=== PATIENT | male | born 1930 | race Caucasian/White ===

== ENCOUNTER 2017-01-31 18:48 | Emergency (ER) | payer MEDICARE, OTHER ==
[2017-01-31] MEDS ORDERED: ONDANSETRON HCL/PF 2 MG/ML VIAL IV ONE (19:18)
--- NOTE | 2017-01-31 19:22 | ERNOTE ---
<Gracia Sousa - Last Filed: 01/31/17 20:09> Abdominal HPI - Narrative Date of Service: 01/31/17 - unable to see patient, signed over to DR Chau - General Chief Complaint: Abdominal Pain Time Seen by Provider: 01/31/17 19:15 Source: patient - Immun/Allergies/Home Medications Immunizatons: IMMUNIZATION HX Immunizations Up to Date Yes History of Influenza Vaccine Yes Hx Pneumococcal Vaccination Yes Allergies/Adverse Reactions: Allergies No Known Drug Allergies Allergy (Verified 01/31/17 19:10) Home Medications: HOME MEDICATIONS Aspirin [Aspirin Enteric Coated] 81 mg PO DAILY 05/16/13 [Last Taken 10/13/13] Nitroglycerin [Nitrostat] 0.4 mg SL Q5MIN PRN 05/16/13 [Last Taken 10/13/13] Simvastatin [Zocor] 5 mg PO DAILY 11/04/14 [Last Taken Unknown] Ergocalciferol [Calciferol] 50,000 units PO Q30D tablet 11/06/14 [Last Taken ] Cranberry Fruit Concentrate [Cranberry] 2 tab PO Q3D 11/08/15 [Last Taken Unknown] Isosorbide Mononitrate [Imdur] 60 mg PO DAILY 11/08/15 [Last Taken Unknown] Losartan Potassium [Cozaar] 100 mg PO HS 11/08/15 [Last Taken Unknown] Mirtazapine [Remeron] 7.5 mg PO HS 11/08/15 [Last Taken Unknown] amLODIPine BESYLATE [Norvasc] 10 mg PO DAILY 11/08/15 [Last Taken Unknown] Calcium Carbonate [Calcium] 500 mg PO TID #90 tab.chew 12/25/15 [Last Taken Unknown] Atenolol [Tenormin] 25 mg PO DAILY 01/31/17 [Last Taken Unknown] Iron 65 mg PO DAILY 01/31/17 [Last Taken Unknown] Torsemide 5 mg PO BID 01/31/17 [Last Taken Unknown] Review of Systems - Narrative Narrative: Pt presents with c/o abdominal pain x4-5 days. Pt states that he has pain in the center of his abdomen that rates 5/10. Pt verbalized that he also has a headache 4-5/10. states at home he has had chills. Denies any vomiting or diarrhea. States that his bowels are loose but not diarrhea. Per nursing triage assessment - Patient's Past Medical History Patient History - Medical: Renal Disease, Renal Failure Patient History - Cardiac/Respiratory: CHF, Hypertension Patient History - Cancer: No Hx of Cancer Patient History - Surgical Procedures: Cataracts, Colonoscopy, Cardiac stent, Other, Hernia Repair Patient History - Other: None - Family History Mother Family History - Medical: Family History - Cardiac/Respiratory: CVA/Stroke, Hypertension Father Family History - Medical: Family History - Cardiac/Respiratory: CVA/Stroke - Social History Living Situations: home Abuse History: No History of abuse Psych History: No pertinent hx Smoking Status: Never smoker Alcohol Use: none Drug Use: none - Immunizations Immunizations Up to Date: Yes Hx Pneumococcal Vaccination: Yes History of Influenza Vaccine: Yes ED Progress - Vital Signs Patient's Vital Signs:: I have reviewed the patient's vital signs. Vital Signs: Vital Signs 01/31/17 19:04 Temperature 37.5 C Pulse Rate 76 Respiratory 18 Rate Blood Pressure 150/88 O2 Sat by Pulse 95 Oximetry - EKG EKG read: Interp. by dc - Progress/Reassessment Chief Complaint: Abdominal Pain - Transfer of Care Physician Sign Out: Gracia Sousa - 20:12 Brief History: Patient here with abd pain x several days, labs and xrays, ekg ordered, IV zofran for nausea. Receiving Physician: Clint Chau Pending Results: Labs, X-ray results - examination and history Plan - Plan Plan: signed over to Dr. Chau EKG witn no acute stemi noted nsr rate 63 Departure - Departure Clinical Impression: Abdominal pain Qualifiers: Abdominal location: upper abdomen, unspecified Qualified Code(s): R10.10 - Upper abdominal pain, unspecified Constipation Qualifiers: Constipation type: slow transit constipation Qualified Code(s): K59.01 - Slow transit constipation Disposition: Home self-care Condition: Fair Instructions: Constipation, Adult, [id number] Referrals: Srini Roy MD [Primary Care Provider] - <Clint Chau - Last Filed: 02/01/17 20:21> Abdominal HPI - General Source: patient, family Exam Limitations: no limitations - Immun/Allergies/Home Medications Immunizatons: IMMUNIZATION HX Immunizations Up to Date Yes History of Influenza Vaccine Yes Hx Pneumococcal Vaccination Yes - History of Present Illness Narrative: Pt states he began to have diffuse abdominal pain 4-5 days ago. It has continued and gotten somewhat worse. Having a BM helps a little Timing: constant, getting worse Quality: moderate Activities at Onset: none Modifying Factors - (Improves): Present: defecating Modifying Factors - (Worsens): Present: coughing, movement, other - belching Associated Symptoms: Present: fever/chills, other - loose, dark stools Review of Systems - Review of Systems Constitutional: Present: chills EYE: Present: no symptoms reported ENT: Present: no symptoms reported Respiratory: Absent: shortness of breath, cough Cardiology: Absent: chest pain, palpitations Gastrointestinal/Abdominal: Present: See HPI Genitourinary: Absent: frequency, dysuria Musculoskeletal: Present: no symptoms reported Skin: Present: no symptoms reported Neurological: Present: headache - mild Endocrine: Present: intolerance to cold Hematologic/Lymphatic: Present: no symptoms reported Psych: Present: no symptoms reported Physical Exam - Physical Exam General Appearance: Present: wd/wn, alert, no apparent distress Ears, Nose, Throat: Present: normal ENT inspection Neck: Present: normal inspection, nontender Respiratory: Present: no respiratory distress, normal breath sounds, lungs clear Cardiovascular/Chest: Present: regular rate, rhythm, no murmur Gastrointestinal/Abdominal: Present: normal bowel sounds, tenderness - periumbilical Back Exam: Present: no CVA tenderness, no vertebral tenderness Extremity Exam: Present: normal inspection, non-tender, no edema Neurological Exam: Present: alert, oriented, normal mood/affect, no motor/ sensory deficits Skin Exam: Present: normal color, warm/dry Lymphatic Exam: Present: no adenopathy ED Progress - Results and Orders Patient's Lab Results:: I have reviewed the patient's lab results. Results and Orders: Laboratory Tests 01/31/17 01/31/17 01/31/17 19:24 19:28 19:28 WBC 9.3 Hgb 13.0 L Hct 37.3 L Plt Count 148 L Sodium 134 Potassium 4.9 H Chloride 98 Carbon Dioxide 27.1 Anion Gap 13.8 BUN 76 H D Creatinine 3.63 H D Est GFR (Non-Af Amer) 17 L D BUN/Creatinine Ratio 20.9 Random Glucose 139 H Calcium 9.1 Total Bilirubin 0.8 AST 15 ALT 16 L Alkaline Phosphatase 77 Total Protein 7.7 Albumin 3.5 Amylase 78 Lipase 354 Urine Color Yellow Urine Appearance Clear Urine pH 5.5 Ur Specific Mcdonald 1.010 Urine Protein 30 H Urine Glucose (UA) Negative Urine Ketones Negative Urine Blood 5 H Urine Nitrate Negative Urine Bilirubin Negative Prot Sulfosalicylic Acd 1+ Urine Urobilinogen Normal Ur Leukocyte Esterase Negative Urine RBC Trace Urine WBC None seen Ur Epithelial Cells 0-5 Urine Bacteria None seen Urine Culture Comments No culture indicated - Vital Signs Patient's Vital Signs:: I have reviewed the patient's vital signs. 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 EKG read: Interp. 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 small non-obstructive calculi in the left kidney diverticulosis without diverticulitis Normal appendix NO evidence of bowel obstruction, inflammation or perforation
--- OUTSIDE RECORDS SUMMARY | 2017-01-31 19:27 | XMS REPORT | Continuity of Care Document ---
:1930 Author Organization [employer] [place] [address] Care Team Providers Name Role Phone Provider, None Per Patient Primary Care Provider Unavailable Source Comments This disclosure is being made pursuant to the [employer]ust have it! program and maynot contain all information available regarding this patient.[employer] Active Allergies and Adverse Reactions No Known Allergies Current Medications Be aware that medications may not be up to date as of this document. Alwaysverify current medications with the patient. Prescription Sig. Disp. Refills Start Date End Date Status aspirin low dose 81 MG Chew 81 mg by Active CHEW mouth daily. clopidogrel (PLAVIX) 75 MG Take 75 mg by Active tablet mouth daily. atenolol (TENORMIN) 25 MG Take 25 mg by Active tablet mouth daily. terazosin (HYTRIN) 5 MG Take 5 mg by mouth Active capsule nightly. Active Problems Not on file Social History Tobacco Use Types Packs/Day Years Used Date Never Assessed Last Filed Vital Signs Vital Sign Reading Time Taken Blood Pressure 136/62 02/17/2012 10:31 AM CDT Pulse 54 02/17/2012 10:31 AM CDT Temperature - - Respiratory Rate 14 02/17/2012 10:31 AM CDT Height - - Weight - - Body Mass Index - - Oxygen Saturation 98% 02/17/2012 10:31 AM CDT Plan of Care Health Maintenance Due Date Last Done Comments Tetanus/Pertussis (1 - Tdap) 1949 Well Adult Visit 1978 Zoster Vaccine 60+ 1988 Pneumococcal Low/Medium Risk 65+ (1 of 2 - PCV13) 1993 Retired-INFLUENZA VACCINE 03/30/2016 Results from Last 3 Months Not on file Insurance Payer Benefit Plan / Group Subscriber ID Type Phone Address [employer] [id number] MEDICARE MEDICARE A AND B [id number] [id number] [address] [place] [address] 2 [id number] [place] [address]
[2017-01-31 19:30] LABS: Hematocrit 37.3 % (42.0-52.0); Mean Cell Volume 92.1 fl (78-100); Mean Corpuscular Hemoglobin 32.1 pg (27-31); Mean Corpuscular Hgb Conc 34.9 g/dl (32-36); Mean Platelet Volume 10.8 fl (6.0-9.5); Neutrophil # 6.8 K/mm3 (1.3-6.0); Neutrophil % 72.8 % (42-75.0); Platelet Count 148 K/mm3 (150-450); Red Blood Count 4.05 M/mm3 (4.7-6.0); Red Cell Distribution Width 12.8 % (11.5-14.0); White Blood Count 9.3 K/mm3 (4.0-10.5)
[2017-01-31 19:42] LABS: Albumin * 3.5 gm/dl (3.4-5.0); Anion Gap 13.8 mmol/L (6.8-13.8); BUN/Creatinine Ratio 20.9 (9.0-21.6); Bilirubin, Total 0.8 mg/dL (0.0-1.1); Ca. Corrected For Albumin 9.2 mg/dL (8.4-10.2); Calcium * 9.1 mg/dL (7.9-10.9); Carbon Dioxide 27.1 mmol/L (24-32.6); Potassium 4.9 mmol/L (3.4-4.6); Total Protein 7.7 gm/dL (6.2-8.2)
[2017-01-31] MEDS ORDERED: ONDANSETRON HCL/PF 2 MG/ML VIAL ONE (19:47)
[2017-01-31 19:53] LABS: Urine Bilirubin Negative (NEGATIVE); Urine Ketone Negative (NEGATIVE); Urine Nitrite Negative (NEGATIVE); Urine Protein 30 mg/dL (NEGATIVE); Urine Urobilinogen Normal (NORMAL); Urine pH 5.5 pH (5.0-7.0)
[2017-01-31 19:54] LABS: Urine Appearance Clear; Urine Bacteria None Seen; Urine Blood 5 /ul (NEGATIVE); Urine Color Yellow; Urine RBC TRACE /hpf (0-5); Urine WBC None Seen /hpf (0-5)
[2017-01-31] MEDS ORDERED: NORMAL SALINE 1,000 ML IV ONE (21:27)
[2017-01-31] MEDS ORDERED: DIATRIZOATE MEGLU/DIATRIZO SOD 30 ML BTL ONE (21:34)
[2017-01-31] MEDS ORDERED: DIATRIZOATE MEGLU/DIATRIZO SOD 30 ML BTL PO ONE (21:34)
[2017-01-31 23:45] VITALS: BP 185/78
[2017-02-01] MEDS ORDERED: MAGNESIUM HYDROXIDE 30 ML UDC PO ONE (00:02)
[2017-02-01] MEDS ORDERED: MAGNESIUM CITRATE 300 ML BTL ONE (00:05)
[2017-02-01] MEDS ORDERED: MAGNESIUM HYDROXIDE 30 ML UDC ONE (00:06)
== END 2017-02-01 00:08 | disposition home or self-care (01) ==
LOC: ER 18:48
DX: R10.10 Upper abdominal pain, unspecified (principal); K59.01 Slow transit constipation; I50.9 Heart failure, unspecified; I10 Essential (primary) hypertension; N28.9 Disorder of kidney and ureter, unspecified
CPT/HCPCS: 36415; 74020; 74176; 80053; 81001; 82150; 83690; 85025; 93005; 96374; 99285; J2405